=== PATIENT | male | born 1960 | race Caucasian/White ===

== ENCOUNTER → 2016-09-13 | Day surgery (SDC) | payer OTHER ==
[~2016-09-13] MED LIST: ACCUCHECKS; ALEVE220 M1 PO; AMARYL2 MG PO; APRESOLINE PO; ASPIRIN81 M2 PO; B COMPLEX1 TAB PO; BACTROBAN22 GM TP; BAYER ASPIRIN325 M1 PO; CARVEDILOL25 MG PO; CLEOCIN PO; CLOBETASOL 0.0560 GM TOP; COREG12.5 MG PO; CRESTOR PO; CRESTOR10 MG PO; CUBICIN IV; DIABETIC PILL PO; EFFIENT10 MG PO; FIBER CHOI1 TAB.CHE1 PO; FISH OIL 1,0001 CA2 PO; FLAX SEED OIL1000 M1 PO; GINKGO BILOBA PO; GLIMEPIRIDE1 M1 PO; GLIMEPIRIDE1 MG PO; GLUCOMETER; GLUCOPHAGE500 M1 PO; HYDROCODON-ACE1 EAC7 PO; IMDUR-ER30 M3 PO; JENTADUETO 2.51 EAC2 PO; K-DUR20 ME1 PO; KLOR-CON PO; LASIX PO; LASIX20 MG PO; LEVAQUIN PO; LISINOPRIL20 MG PO; MULTI VITAMIN1 EACH PO; NITROGYLCERIN SUBLINGUAL; PRILOSEC40 MG PO; TIGECYCLINE IV; VITAMIN C1000 M2 PO; [UNRECOGNIZED DRUG - OTHER]
--- NOTE | ~2016-09-13 | OR ---
Unit #: [id number] #: [id number] Patient: LA PATRICIA [id number] [address] [place], [place] [address] [id number] MR#: [id number] NAME: LA PATRICIA. ROOM: Date of Procedure: 09/13/2016 Admission Date: 09/13/2016 Surgeon: Jose Fine M.D. : 1960 Attending Physician: Jose Fine M.D. Primary Care Physician: Love Quach M.D. OPERATIVE REPORT PRIMARY CARE PHYSICIAN Love Quach M.D. PREOPERATIVE DIAGNOSIS Colorectal cancer screening in an average-risk patient. PROCEDURES PERFORMED Colonoscopy and polypectomy. POSTOPERATIVE DIAGNOSES 1. The patient had a single sessile polyp in the sigmoid colon. This was about 1.5 cm in size. It was removed and retrieved and sent for histology after removal. 2. Mild sigmoid and descending colon diverticulosis. 3. Rest of the examination up to cecum was normal. The quality of the prep was excellent. RECOMMENDATIONS 1. Follow up the results of polyp histology. 2. Repeat colonoscopy in 5 years. SEDATION USED MAC. DESCRIPTION OF PROCEDURE Following detailed explanation of the potential risks and complications of a colonoscopy, namely perforation, bleeding, and complications related to sedation, the patient was brought to GI lab and laid in the left lateral decubitus position. A digital rectal examination was performed, which was normal. Lubricated tip of the Olympus video colonoscope was inserted through the anus and advanced under direct vision. The scope was advanced past rectosigmoid into descending colon. Scant small diverticula were seen in this area. In addition, a single sessile polyp was noted in the sigmoid colon. The scope tip was then navigated all the way up to cecum with visualization of the ileocecal valve and the appendiceal orifice. Preparation was excellent with good visualization and photodocumentation was obtained. Successive segments of the colonic mucosa were examined upon withdrawal. Other than the diverticula noted earlier, no other abnormalities were noted. The polyp in the sigmoid colon was then attended, it was about 1.5 cm in size and sessile. It was removed using snare cautery polypectomy. The polyp was retrieved and sent for histology. Excellent hemostasis was achieved and photodocumentation was Unit #: [id number] #: [id number] Patient: LA PATRICIA obtained. No additional polyps were noted. The patient did not have any hemorrhoids at anal verge. The scope was then withdrawn and the patient returned to the recovery area. She tolerated the procedure without any postprocedure complications. Dictated by... Raimundo Lim/jennifer TD: 09/13/2016 21:08 JOB #: [id number] OPERATIVE REPORT X Jose Fine MD X PROCEDURE OPERATIVE NOTE
== END | disposition home or self-care (01) ==
LOC: COPS 06:17
PROVIDERS: Internal Medicine Gastroenterology
PROC: 0DBN8ZX Excision of Sigmoid Colon, Via Natural or Artificial Opening Endoscopic, Diagnostic (ICD-10-PCS; principal; 2016-09-13 08:00)
DX: Z12.11 Encounter for screening for malignant neoplasm of colon (principal); D12.5 Benign neoplasm of sigmoid colon; K57.30 Diverticulosis of large intestine without perforation or abscess without bleeding; K21.9 Gastro-esophageal reflux disease without esophagitis; E66.01 Morbid (severe) obesity due to excess calories; Z68.41 Body mass index [BMI] 40.0-44.9, adult; E11.9 Type 2 diabetes mellitus without complications; Z79.84 Long term (current) use of oral hypoglycemic drugs; Z79.899 Other long term (current) drug therapy; I50.9 Heart failure, unspecified; I25.2 Old myocardial infarction; Z95.5 Presence of coronary angioplasty implant and graft; Z87.442 Personal history of urinary calculi; Z88.0 Allergy status to penicillin; Z91.040 Latex allergy status; Z91.048 Other nonmedicinal substance allergy status
CPT/HCPCS: 82947; 88305; J2250